=== PATIENT | male | born 1950 | race Caucasian/White ===

== ENCOUNTER 2018-09-05 16:21 | Observation (INO) | payer MEDICARE ==
[2018-09-05 17:30] LABS: #Basophils 0.1 thou/uL (0.0-0.2); #Eosinphils 0.2 thou/uL (0.0-0.7); #Lymphocytes 1.9 thou/uL (1.20-3.40); #Monocytes 0.6 thou/uL (0.11-0.59); %Basophils 0.9 % (0.0-1.0); %Eosinophils 2.7 % (0.0-10.0); %Lymphocytes 21.5 % (21.0-51.0); %Monocytes 7.1 % (0.0-10.0); %Neutrophils 67.7 % (42.0-75.0); Hemoglobin 14.3 g/dL (14.0-18.0); Mean Corpuscular HGB CONC 33.3 g/dL (32.0-36.0); Mean Corpuscular Hemoglobin 30.9 pg (27.0-31.0); Mean Corpuscular Volume 92.8 fL (78.0-98.0); Mean Platelet Volume 7.9 fL (7.4-10.4); Platelet Count 256 thou/uL (130-400); RBC Distribution Width 11.7 % (11.5-14.5); Red Blood Cell (RBC) Count 4.64 mill/uL (4.70-6.10); White Blood Cell (WBC) Count 8.9 thou/uL (4.8-10.8)
[2018-09-05 17:52] LABS: ALT (SGPT) 14 U/L (8-55); AST (SGOT) 14 U/L (5-34); Albumin 3.9 g/dL (3.4-4.8); Alkaline Phosphatase 69 U/L (40-150); Anion Gap 8 mmol/L (10-20); BUN (Urea Nitrogen) 15 mg/dL (8.4-25.7); Bilirubin, Total 0.5 mg/dL (0.2-1.2); Calc. Creatinine Clearance 0 mL/min (70-130); Calcium 9.6 mg/dL (7.8-10.44); Carbon Dioxide 29 mmol/L (23-31); Chloride 103 mmol/L (98-107); Estimated GFR-MDRD 73; Glucose 103 mg/dL (80-115); Potassium 4.2 mmol/L (3.5-5.1); Protein, Total 5.9 g/dL (5.8-8.1); Sodium 136 mmol/L (136-145)
[2018-09-05 18:44] LABS: PTT 28.5 SEC (22.9-36.1); Prothrombin Time 13.3 SEC (12.0-14.7)
[2018-09-05] MEDS ORDERED: Senokot S 8.6-50 MG TAB PO PRN (19:58)
[2018-09-05] MEDS ORDERED: Acetaminophen 325 MG TAB PO PRN (19:58)
[2018-09-05] MEDS ORDERED: Famotidine/PF 20 mg/2ml Vial SLOW IVP SCH (21:00)
[2018-09-05] MEDS: Famotidine 20 MG TAB PO SCH (21:27)
[2018-09-05] MEDS: Melatonin 3 MG TAB PO PRN (21:42)
[2018-09-05 21:46] LABS: Troponin I 0.017 ng/mL (< 0.028)
[2018-09-05 22:17] VITALS: BMI 34.0
--- NOTE | 2018-09-05 23:42 | HP ---
PRIMARY CARE PHYSICIAN: Bee Prasad DO CHIEF COMPLAINT: Chest pain, dizziness. HISTORY OF PRESENT ILLNESS: Mr. Stone is a 68-year-old male who reported to the emergency room at [place] earlier today for palpitations, diaphoresis, little bit of shortness of breath with substernal chest pain. Reports that the symptoms lasted about an hour and half. When they did an EKG in [place] that showed narrow complex tachycardia, rate in the 160s. Gave him metoprolol IV with some fluids which converted his rhythm to a sinus rhythm in the 70s. The patient was then transferred to [facility] ER for admission. The patient reports that he had an episode of chest pain about a year and a half ago, had a stress test by his PCP after he declined to have one in the hospital at that time. Reports that he was in [place] working when he had the episode and was subsequently discharged with the understanding that he would follow up with his PCP. The patient reports that his stress test was normal and that his PCP interpreted his symptoms most likely to anxiety. The patient reported at that time he was under quite a lot of stress, so the diagnosis seemed reasonable to him at that time. Other primary diagnosis contributory, he is being treated for high blood pressure. He also takes an 81 mg aspirin every day. Reports that he saw Dr. Prasad within the last several months. Reports that he had a normal checkup. Here, the patient had subsequent followup EKG which showed a normal sinus rhythm. Denies any chest pain, shortness of breath, currently reported that he did feel some dizziness twice today prior to him seeking care at the emergency room at [place]. Denies any dizziness after they gave him the medication over there and prior to being transferred. The patient will be admitted to the observation unit for further management. ALLERGIES: NONE. MEDICATIONS: The patient reports that he does take medication for blood pressure. Does take an aspirin. Reports that his significant other is bringing his medications and we will review and reconcile when we get that list. PAST MEDICAL HISTORY: Hypertension. SURGICAL HISTORY: Hemorrhoidectomy, 3 lumbar back surgeries, reports lumbar spine is fused, hernia repair, left wrist repair. SOCIAL HISTORY: Lives at home. Does have a significant other. Drinks socially. Denies drug use. Denies smoking history. 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 REVIEW OF SYSTEMS: CONSTITUTIONAL: The patient denies chills or fever. EYES: Denies any vision changes or eye pain. ENT: Denies any rhinorrhea or sore throat. CARDIOVASCULAR: Reports chest pain earlier today and reports palpitations, reports that both of those are resolved. RESPIRATORY: Denies any cough. Does report shortness of breath earlier today, resolved. GI: Denies abdominal pain, nausea, vomiting, constipation, or diarrhea. : Denies dysuria or hematuria. MUSCULOSKELETAL: Denies back pain, fall, injury, neck pain. Reports that he has some bilateral shoulder pain, but that has been ongoing for several months and is intermittent. SKIN: Denies rash or skin changes. NEUROLOGIC: Does report intermittent dizziness. Denies headache. All other systems reviewed and negative unless mentioned in the HPI. PHYSICAL EXAMINATION: VITAL SIGNS: Blood pressure 117/64, pulse is 70, respirations 18, temperature is 98.5, pO2 is 96% on room air. CONSTITUTIONAL: The patient appears nontoxic, appears pain free. He is alert and oriented to person, place, and time. HEENT: Head is atraumatic and normocephalic. Eyes; pupils are equal, round, and reactive to light. Extraocular muscles are intact. ENT; mouth exam is normal. Mucous membranes are moist. RESPIRATORY: Breath sounds are clear. There are no findings of respiratory distress. CARDIOVASCULAR: Regular rate and rhythm. Heart sounds are normal. ABDOMEN: Nontender. Bowel sounds are heard. BACK: Normal inspection. Normal range of motion. No tenderness. EXTREMITIES: Upper extremities; normal range of motion. Motor strength is normal. Radial pulses are equal bilaterally. Lower extremities; normal range of motion. Normal motor strength. Sensation is intact. Pedal pulses are equal bilaterally. NEUROLOGIC: The patient is alert to person, place, and time. Speech is normal. Gait was not assessed. SKIN: Warm, dry, and normal in color. No rash. LABORATORY DATA: EKG, one obtained in this emergency room, showed a normal sinus rhythm, beats per minute 68, no ectopics. Does have sinus arrhythmia. Conduction is normal. ST segments are normal. T-waves normal. [place] is normal. PERTINENT LABORATORY DATA: PTT 28.5, INR is 1. Troponin undetectable. Sodium 136, potassium 4.2, chloride 103, carbon dioxide 29, gap is 8, BUN is 15, creatinine is 1.01, GFR is 73, glucose is 103, and calcium is 9.6, bilirubin is 0.5, AST is 14, ALT is 14. D-dimer is less than 0.27. White blood cell count is 8.9, hemoglobin is 14.3, hematocrit is 43, platelet count is 256. ASSESSMENT AND PLAN: 1. Chest pain and palpitations. We will trend troponins. We will obtain an echocardiogram and carotid Doppler. Consult Cardiology. We will also check lipids. 2. Hypertension. We will restart home medications. We will trend. 3. Hospital course will be dependent on clinical findings. Job ID: [id number]
[2018-09-05 23:59] LABS: Troponin I 0.012 ng/mL (< 0.028)
[2018-09-06 07:12] LABS: #Eosinphils 0.3 thou/uL (0.0-0.7); #Lymphocytes 1.8 thou/uL (1.20-3.40); #Monocytes 0.6 thou/uL (0.11-0.59); #Neutrophils 3.9 thou/uL (1.40-6.50); %Basophils 0.6 % (0.0-1.0); %Eosinophils 4.7 % (0.0-10.0); %Monocytes 9.5 % (0.0-10.0); %Neutrophils 58.2 % (42.0-75.0); Hemoglobin 14.4 g/dL (14.0-18.0); Mean Corpuscular HGB CONC 33.4 g/dL (32.0-36.0); Mean Corpuscular Hemoglobin 31.2 pg (27.0-31.0); Mean Corpuscular Volume 93.6 fL (78.0-98.0); Mean Platelet Volume 8.4 fL (7.4-10.4); Platelet Count 230 thou/uL (130-400); RBC Distribution Width 11.7 % (11.5-14.5); White Blood Cell (WBC) Count 6.7 thou/uL (4.8-10.8)
[2018-09-06 07:35] LABS: Anion Gap 12 mmol/L (10-20); BUN (Urea Nitrogen) 15 mg/dL (8.4-25.7); Calc. Creatinine Clearance 125 mL/min (70-130); Calcium 9.4 mg/dL (7.8-10.44); Carbon Dioxide 25 mmol/L (23-31); Cardiac Risk 5.4 (Less than 4.5); Chloride 106 mmol/L (98-107); Cholesterol 209 mg/dl (< 200 Desired); Estimated GFR-MDRD 79; Glucose 102 mg/dL (80-115); HDL Cholesterol 39 mg/dL (>60 Neg Risk); LDL Cholesterol, Calculated 141 mg/dL; Magnesium 2.7 mg/dL (1.6-2.6); Phosphorus 4.1 mg/dL (2.3-4.7); Potassium 4.7 mmol/L (3.5-5.1); Sodium 138 mmol/L (136-145); Triglycerides 147 mg/dL (Less than 150)
[2018-09-06] MEDS ORDERED: Enoxaparin Sodium 40 MG/0.4 ML SYRINGE SC SCH (09:00)
--- NOTE | 2018-09-06 09:25 | ULT ---
FBILATERAL CAROTID DUPLEX ULTRASOUND: HISTORY: Dizziness TECHNIQUE: Grayscale, color-flow and spectral Doppler ultrasound imaging of the extracranial carotid artery syst ems was performed bilaterally. FINDINGS: There is plaque formation on either side.. The peak systolic velocity in the right ICA measures 53 cm/s with an end-diastolic velocity of 15 cm/ s and a systolic ratio of 0.84. The peak systolic velocity in the left ICA measures 62 cm/s with an end-diastolic velocity of 19 cm/s and a systolic ratio of 0.87. Flow in both vertebral arteries remains antegrade. IMPRESSION: No evidence of hemodynamically significant stenosis in either ICA.
[2018-09-06] MEDS: Famotidine 20 MG TAB PO SCH ×2 (10:15→19:54)
[2018-09-06] MEDS: Lisinopril 20 MG TAB PO SCH (10:15)
--- NOTE | 2018-09-06 12:29 | PRG ---
DATE OF SERVICE: SUBJECTIVE: Mr. Stone is a very pleasant 68-year-old male with past medical history significant for hypertension, who presented to the [place] ER with complaints of chest pain, shortness of breath, and dizziness. The patient has been admitted with supraventricular tachycardia. He did have spontaneous resolution of his arrhythmia back to sinus after being given Lopressor in the [place] ER. He was brought to our facility for further workup. Overnight, this patient has remained in sinus rhythm. His presenting symptoms of chest pain, shortness of breath and dizziness have resolved. He has no complaints to me this morning. He denies CP, SOB, N/V, [place]. OBJECTIVE: VITAL SIGNS: Blood pressure 143/93, pulse is 58, O2 saturation is 99% on room air, respirations are 16. GENERAL: The patient is a mildly obese male resting comfortably in bed, in no acute distress, well appearing. NECK: No JVD. No carotid bruits, trachea is midline. HEENT: Head is atraumatic, normocephalic. Mucous membranes are moist. CV: S1, S2. Regular rate and rhythm. No appreciable murmurs, rubs, or gallops. LUNGS: Regular respiratory rate and pattern. Clear to auscultation bilaterally with no wheezes, rhonchi, or crackles noted. ABDOMEN: Positive bowel sounds, obese, nontender. EXTREMITIES: No lower extremity pitting edema, +2 DP pulses bilaterally. SKIN: Warm and dry. No rashes or abrasions. LABORATORY DATA: White blood cell count 6.7, hemoglobin 14.4, hematocrit 43.1, platelets 230. PT 13.3, INR 1.0. D-dimer less than 0.27. Sodium 138, potassium 4.7, chloride 106, creatinine 0.94, glucose 102, magnesium 2.7. Liver function enzymes within normal limits. Troponin negative x2. Cholesterol is 209, LDL 141, HDL 39. ASSESSMENT: 1. 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 2. Chest pain secondary to above, resolved, acute coronary syndrome ruled out. 3. Hypertension. 4. Hyperlipidemia. PLAN: Dr. Polanco has consulted and is recommending EP ablation of his arrhythmia. Dr. Alvarez to see later this afternoon. We anticipate an ablation tomorrow. N.p.o. after midnight. Echocardiogram is pending and we will review results. The patient has had a recent nuclear stress test in the past year or so and that will be deferred at this time. Continue his home dose of lisinopril, and we will add a low-dose statin. Further recommendations based on hospital course. Care discussed with Dr. Jensen, who agrees with plan as outlined above. Job ID: [id number] MTDD
--- NOTE | 2018-09-06 14:06 | CON ---
DATE OF CONSULTATION: 09/06/2018 REASON FOR CONSULTATION: Tachycardia associated with chest pain. HISTORY OF PRESENT ILLNESS: Mr. Stone is a very pleasant 68-year-old man. The patient states he just was not feeling well yesterday around noon. He felt lightheaded. He was vaguely aware that his heart seemed to be going fast. He called his , she came to check on him. He ate some lunch, but even after about an hour, this did not feel well, following that went to the emergency room with supraventricular tachycardia rate of 160. He received metoprolol 5 mg IV, converted to sinus rhythm. The patient had an episode of "panic attack" a year and a half ago associated with tachycardia as well. I suspect that was probably an episode of SVT. Otherwise, the patient is active, exert himself on a regular basis, does some ranching type work, caring and lifting with no chest pain or pressure. He had been in good physical condition. PAST MEDICAL HISTORY: History of hypertension, on lisinopril. SOCIAL HISTORY: He does chew some tobacco. Does not smoke. REVIEW OF SYSTEMS: CONSTITUTIONAL: No significant weight gain or loss. Vision, no changes. Hearing, no changes. PULMONARY: No cough or wheezing. GASTROINTESTINAL: No nausea, vomiting, or diarrhea. SKIN: No rashes. NEUROLOGIC: No unilateral weakness or numbness. PSYCHIATRIC: No unusual depression or anxiety. HEMATOLOGIC: No unusual bruising. GENITOURINARY: No burning with urination. PHYSICAL EXAMINATION: GENERAL: This is a pleasant 68-year-old man, looks younger than his chronologic age. VITAL SIGNS: His blood pressure 150/70, pulse 60, regular. HEENT: Eyes, sclerae nonicteric. Mouth mucous membranes moist. NECK: Supple. No lymphadenopathy. LUNGS: Clear. No wheezing, rales, or rhonchi. CARDIAC: Normal S1, normal S2. There is no murmur, rub, or gallop. ABDOMEN: Soft and nontender. EXTREMITIES: No clubbing or cyanosis. There is no edema. Peripheral pulses are present. SKIN: Warm and dry. PSYCHIATRIC: Mood and affect normal. NEUROLOGIC: Grossly normal. PERTINENT LABORATORY DATA: EKG yesterday shows narrow complex supraventricular tachycardia, rate of 160. Pertinent laboratories bilirubin was 0.5. Magnesium level 2.7. LDL cholesterol was 141. Troponin levels were all in negative range. ASSESSMENT: 1. Supraventricular tachycardia, highly symptomatic with prolonged episodes of tachycardia. 2. Negative cardiac enzymes despite a rapid prolonged tachycardia. PLAN: 1. EKG reviewed, it looks like supraventricular tachycardia. I have consulted Dr. Alvarez for ablation procedure. 2. Echocardiogram to be done. 3. We will go ahead and proceed with stress testing to look for evidence of atherosclerotic heart disease. ADDENDUM Mr. Stone states he has had a nuclear medicine stress test less than a year ago. He said "passed with flying colors" at this time; therefore, we will not repeat the stress test. He will be scheduled for supraventricular tachycardia ablation and also echocardiogram to be done. The patient did have negative cardiac enzymes with his prolonged episode of tachycardia, indicating it is very unlikely he has severe underlying coronary artery disease. Job ID: [id number]
--- NOTE | 2018-09-06 18:13 | CON ---
DATE OF CONSULTATION: 09/06/2018 HISTORY OF PRESENT ILLNESS: I am seeing Mr. Stone at our [facility] Telemetry Floor as an electrophysiology consultant electronics. His problems are; 1. Paroxysmal supraventricular tachycardia. a. EKG on admission reveals narrow complex tachycardia, rate of 158 beats per minute. P-wave is likely buried in QRS with response to metoprolol. b. Structurally normal heart. LVEF 60% to 65%. Normal left atrial size. No same valvular abnormality on echo, 09/06/2018. 2. Chest pain without significant EKG changes and negative troponins on admission resolved with normalizing heart rates. 3. History of hypertension, on lisinopril. ALLERGIES: NONE NOTED. MEDICATIONS: At home included lisinopril and aspirin 81 daily. SUBJECTIVE: Mr. Stone has had episode of palpitations about a year ago at which point, he did develop rapid heart beat. By the time he got to the ER, his heart rate normalized and he was told hat he might have had an anxiety attack. He had similar sensations yesterday and ended up in the Medicine ER and he was noted to be in narrow complex SVT. IV metoprolol was administered, which eventually terminated the arrhythmia ever since he remains in sinus rhythm. During the episode, he experienced some chest tightness sensation in the upper part of his sternum without radiation. He had no PND, orthopnea, or lower extremity edema since fluid overload no stroke-like symptoms. No neurological deficits. No fever, chills, or cough. Currently, he is asymptomatic. Rest of 12-point system otherwise unremarkable. PAST MEDICAL HISTORY: As above. PAST SURGICAL HISTORY: Includes extensive back surgeries due to a hunting accident in [place] many years ago. He had history of hemorrhoidectomy, as well as wrist repair in the past. SOCIAL HISTORY: He is . is at bedside. He is at home. Drinks on social basis. Denies drug use. 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 FAMILY HISTORY: Noncontributory. OBJECTIVE DATA: VITAL SIGNS: Blood pressure is 137/71, heart rate 73, respiratory rate 16, temperature 98.3 degrees Fahrenheit. GENERAL: Alert and oriented man, in no apparent distress. NECK: Supple. Jugular veins not distended. CHEST: Coarse without crackles. HEART: Sounds are regular to rate and rhythm. No murmur or gallop. ABDOMEN: Benign. Bowel sounds positive. EXTREMITIES: Lower extremities without edema, clubbing or cyanosis. Pulses are adequate. NEUROLOGIC: The patient is nonfocal. MUSCULOSKELETAL: Exam without joint deformities. SKIN: Without rash. DATABASE: EKG is reviewed, revealing sinus rhythm, rate of 84 beats per minute. EKG prior to that yesterday reveals a narrow complex SVT with somewhat prominent RSR pattern in V1 QRS. LABORATORY DATA: Sodium 138, potassium 4.7, BUN is 15, creatinine is 0.94. Troponins are negative x3. Total cholesterol 209, LDL 141, HDL 39. INR is 1.0. White cell count 6.7, hemoglobin 14.4, and platelet count is 230. ASSESSMENT AND PLAN: Me. Stone is a pleasant 68-year-old man with prior history of palpitations, presenting with supraventricular tachycardia which could be consistent with AV uzma reentry tachycardia, completely rule out alternative causes like atrial tachyarrhythmias, atrial tachycardias. EP study would be helpful to determine the exact mechanism. Also discussed option of ablation. He prefers this over long-term medical therapy. We discussed potential risks including bradycardia requiring pacing, tamponade requiring pericardiocentesis or surgical repair, infection recurrences were also mentioned. He understands all of these and willing to proceed. We will schedule him for near date. Thank you for allowing us to participate in the care of this patient. Job ID: [id number]
[2018-09-06] MEDS: Melatonin 3 MG TAB PO PRN (19:54)
[2018-09-06] MEDS: Atorvastatin Calcium 10 MG TAB PO SCH (19:54)
[2018-09-07 05:10] LABS: #Basophils 0.1 thou/uL (0.0-0.2); #Eosinphils 0.4 thou/uL (0.0-0.7); #Lymphocytes 1.9 thou/uL (1.20-3.40); #Monocytes 0.5 thou/uL (0.11-0.59); #Neutrophils 3.5 thou/uL (1.40-6.50); %Basophils 0.8 % (0.0-1.0); %Eosinophils 5.7 % (0.0-10.0); %Lymphocytes 30.1 % (21.0-51.0); %Monocytes 7.8 % (0.0-10.0); %Neutrophils 55.5 % (42.0-75.0); Hemoglobin 14.4 g/dL (14.0-18.0); Mean Corpuscular HGB CONC 34.1 g/dL (32.0-36.0); Mean Corpuscular Hemoglobin 31.9 pg (27.0-31.0); Mean Corpuscular Volume 93.6 fL (78.0-98.0); Mean Platelet Volume 8.4 fL (7.4-10.4); Platelet Count 220 thou/uL (130-400); RBC Distribution Width 11.8 % (11.5-14.5); Red Blood Cell (RBC) Count 4.52 mill/uL (4.70-6.10); White Blood Cell (WBC) Count 6.4 thou/uL (4.8-10.8)
[2018-09-07 05:39] LABS: Anion Gap 12 mmol/L (10-20); BUN (Urea Nitrogen) 15 mg/dL (8.4-25.7); Calc. Creatinine Clearance 121 mL/min (70-130); Calcium 9.4 mg/dL (7.8-10.44); Carbon Dioxide 25 mmol/L (23-31); Chloride 105 mmol/L (98-107); Estimated GFR-MDRD 77; Glucose 98 mg/dL (80-115); Potassium 4.3 mmol/L (3.5-5.1); Sodium 138 mmol/L (136-145)
--- NOTE | 2018-09-07 09:00 | PRG ---
DATE OF SERVICE: 09/07/2018 SUBJECTIVE: The patient is doing well, has no new complaints. He has some questions regarding his procedure today. OBJECTIVE: VITAL SIGNS: Temperature 97.9, pulse 56, respirations 14, O2 saturation 97% on room air, and BP 127/64. GENERAL APPEARANCE: Age-appropriate male, in no distress. He is awake, alert, oriented, pleasant, and cooperative. HEART: Regular rate and rhythm without murmurs, gallops, or rubs. LUNGS: Clear to auscultation bilaterally. ABDOMEN: Soft, nontender, and nondistended. NEUROLOGIC: The patient appears to be a fully intact with no focal deficits. LABORATORY DATA: Review of his carotid Dopplers reveal no significant disease. His echocardiogram appears essentially normal. His total cholesterol is 209, LDL is 141, and HDL is 39. IMPRESSION AND PLAN: 1. 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 It has been evaluated by Cardiology and EP. He has normal-appearing echocardiogram. The plan is for EP study today with potential ablation of the aberrant pathway. If that goes planned, the patient will likely be able to discharge later today. 2. Hypertension. Continue with his usual angiotensin-converting enzyme inhibitor. 3. Cholesterol panel likely where as continuation of statin. Job ID: [id number]
[2018-09-07] MEDS: Lisinopril 20 MG TAB PO SCH (09:56)
[2018-09-07] MEDS: Famotidine 20 MG TAB PO SCH ×2 (09:57→21:08)
[2018-09-07] MEDS ORDERED: Heparin 10,000 UNITS/1 ML VIAL ONE (10:11)
[2018-09-07] MEDS ORDERED: Lidocaine 1% PF 5 ML VIAL ONE (10:19)
[2018-09-07] MEDS ORDERED: PROPOFOL 200 MG/20 ML VIAL ONE (10:19)
[2018-09-07] MEDS ORDERED: Midazolam HCl 2 mg/2 ml Vial ONE (12:14)
[2018-09-07] MEDS ORDERED: Isoproterenol 0.2 MG/1 ML AMP ONE (12:35)
[2018-09-07] MEDS ORDERED: Fentanyl 100 MCG/2 ML VIAL ONE ×3 (13:05→15:22)
[2018-09-07] MEDS ORDERED: Acetaminophen/Codeine 30-300mg Tablet ONE (14:29)
[2018-09-07] MEDS ORDERED: Ketorolac Tromethamine 30 MG/ML VIAL ONE (15:27)
[2018-09-07] MEDS ORDERED: HYDROcodone/Acetaminophen 7.5/325 mg Tablet PO PRN (16:39)
[2018-09-07] MEDS ORDERED: Acetaminophen/Codeine 30-300mg Tablet PO PRN ×2 (16:45)
--- NOTE | 2018-09-07 16:55 | PRG ---
DATE OF SERVICE: 09/07/2018 Mr. Stone underwent catheter ablation today. He has some groin tenderness. He will be kept overnight. I have asked him to come to see us in the office in about a month. DIAGNOSIS: Supraventricular tachycardia, atrioventricular uzma reentry with successful ablation. Job ID: [id number]
--- NOTE | 2018-09-07 17:48 | PRG ---
DATE OF SERVICE: 09/07/2018 SUBJECTIVE: Mr. Stone is a very pleasant 68-year-old male with past medical history significant for hypertension, who presented to the [place] ER with complaints of chest pain, shortness of breath, and dizziness. The patient was admitted with narrow complex tachycardia consistent with AVNRT. He was taken to the EP lab by Dr. Alvarez this afternoon for EP ablation, which was successful. The patient is seen post procedure in his room. He does complain of some right groin pain and some hip soreness. No chest pain. No shortness of breath. No nausea or vomiting. OBJECTIVE: VITAL SIGNS: Temperature 97.8, pulse is 57, blood pressure 127/64, respirations 20, and O2 saturation 98% on room air. GENERAL: This is a moderately obese male, resting in bed. No acute distress. NECK: No JVD. No carotid bruits. Trachea is midline. HEENT: Head is atraumatic and normocephalic. Mucous membranes are moist. CV: S1 and S2. Regular rhythm, mildly bradycardic. No appreciable murmurs, rubs, or gallops. LUNGS: Regular respiratory rate and pattern. Clear to auscultation bilaterally. No wheezes, rhonchi, or crackles noted. ABDOMEN: Positive bowel sounds. Obese. Nontender. EXTREMITIES: No lower extremity pitting edema. Groin sites bilaterally are soft, no bruit. No evidence of hematoma. SKIN: Warm and dry. No rashes or abrasions. LABORATORY DATA: White blood cell 6.4, hemoglobin 14.4, and hematocrit 42.3. Sodium 138, potassium 4.3, chloride 105, carbon dioxide 25, BUN 15, and creatinine 0.97. ASSESSMENT: 1. AV uzma reentry tachycardia, status post ablation, currently in sinus bradycardia. 2. Chest pain on presentation secondary to above, resolved, acute coronary syndrome ruled out. 3. Hypertension. 4. Hyperlipidemia. PLAN: The patient will be monitored overnight for any arrhythmia. After bedrest, he will ambulate as tolerated. Expect discharge tomorrow morning. He will see both Dr. Polanco and Dr. Alvarez as outpatient. Care discussed with Dr. Mahajan, who agrees with the above. Job ID: [id number]
--- NOTE | 2018-09-07 19:24 | OP ---
DATE OF PROCEDURE: 09/07/2018 PROCEDURE PERFORMED: Electrophysiology study and radiofrequency ablation. REASON FOR PROCEDURE: Mr. Stone is a 68-year-old man with prior history of hypertension, presented with recurrent palpitations and EKG documentation for narrow complex SVT at 150 to 160 beats per minute. He is here for EP study and ablation. DESCRIPTION OF PROCEDURE: The patient received propofol by Anesthesia specialist. After adequate level of sedation achieved, the left and right femoral venous areas were prepped, draped, and anesthetized using subcutaneous lidocaine. Under ultrasound guidance, both femoral veins were cannulated. On the left side, 6 and 8-Iranian sheath was used to advance the octapolar and decapolar catheters in the right atrium, right ventricle, His bundle, and CS position. Pacing, mapping, and recording were performed in each location. Following findings were noted. The baseline rhythm is sinus rhythm with cycle length 922 milliseconds, DE was 74, QRS was 97, QT was 360 milliseconds, AH measured 43 millisecond, HV 36 milliseconds. Sinus node recovery time was 1218, corrected sinus node recovery time was 290 milliseconds. The AV uzma Wenckebach occurred was 460 milliseconds. The retrograde Wenckebach cycle length was 380 milliseconds. The AV uzma ERP with atrial access to my testing was measured to be 600/320 milliseconds. Concentric retrograde VA activation was seen and dual AV uzma physiology was found to be present. Echo beats were seen during atrial overdrive pacing and also 2 beats of AVNRT was noted only. Isuprel was administered, but no different findings were noted at that time. Due to the presence of slow pathway as well as the typical appearing presenting EKG on admission, decision was made to perform slow pathway modification. We advanced a 4-Iranian regular ablation catheter to the right atrium with CARTO system. 3D map of the right atrium was obtained. The His bundle cloud and the CS were clearly delineated. In the slow pathway area, radiofrequency ablation lesions were delivered a total of 6 lesions. Total duration 2 minutes and 17 seconds were performed. The settings of 40 gong at 50-degree cutoff. During the ablation, junctional beats were observed. In the end of the case, we were not able to reinduce any SVT on and off Isuprel. A Wenckebach cycle length was 460 milliseconds and the AV uzma ERP changed to 600/360 milliseconds. No echo beats were observed and no AVNRT induced on and off Isuprel. CONCLUSION: 1. Presence of slow pathway and short run of tachycardia consistent with AV uzma reentry. 2. Successful slow pathway modification. 3. No change in cardiac silhouette to suggest effusion. PLAN: Routine monitoring. Job ID: [id number]
[2018-09-07] MEDS: Atorvastatin Calcium 10 MG TAB PO SCH (21:08)
[2018-09-07] MEDS: Melatonin 3 MG TAB PO PRN (21:08)
[2018-09-08 08:09] VITALS: BP 130/70; TEMP 98.6
[2018-09-08] MEDS: Lisinopril 20 MG TAB PO SCH (09:26)
[2018-09-08] MEDS: Famotidine 20 MG TAB PO SCH (09:26)
--- NOTE | 2018-09-08 11:28 | DIS ---
DATE OF ADMISSION: 09/05/2018 DATE OF DISCHARGE: 09/08/2018 ALLERGIES: NO KNOWN DRUG ALLERGIES. CHIEF COMPLAINT: Chest pain, dizziness, and shortness of breath. FINAL DIAGNOSES: 1. Chest pain and shortness of breath secondary to AV uzma reentrant tachycardia, status post ablation, currently in sinus rhythm. 2. Chest pain on presentation, secondary to the atrioventricular uzma reentry tachycardia, resolved, acute coronary syndrome ruled out. 3. Hypertension. 4. Hyperlipidemia. PROCEDURE PERFORMED: Electrophysiology study and radiofrequency ablation with Dr. Alvarez. EP study showed presence of slow pathway and short run of tachycardia consistent with AV uzma reentrant tachycardia. He underwent successful slow pathway modification. LABORATORY RESULTS: WBC 6.4, hemoglobin 14.4, hematocrit 42.3, platelets are 220. PT 13.3, INR 1.0. D-dimer less than 0.27. Sodium 138, potassium 4.3, chloride 105, carbon dioxide 25, anion gap 12, BUN 15, creatinine 0.97. Troponin negative x2. Triglycerides 147, cholesterol 209, LDL 141, HDL 39. IMAGING RESULTS: Chest x-ray, no radiographic evidence of acute cardiopulmonary process. Echocardiogram, normal left ventricular systolic function and size with EF estimated at 60% to 65%. Left atrium normal size. No evidence of mitral regurgitation, aortic stenosis, or aortic regurg. CONSULTATIONS: Dr. Polanco, Cardiology; Dr. Alvarez, EP. Vital signs; blood pressure 120/59, pulse is 52, O2 saturation is 97% on room air. The patient is afebrile. HOSPITAL COURSE: The patient is a very pleasant 68-year-old male with past medical history significant for hypertension, who presented to the [place] [facility] with complaints of chest pain, shortness of breath, and dizziness. On arrival to [place], initial EKG showed narrow complex tachycardia, with a regular rhythm, ventricular rate of 160, consistent with AVNRT. The patient was given IV Lopressor, and spontaneously converted back to sinus rhythm. He was transferred to our facility for higher level of care. He was seen in consultation with Dr. Polanco, who did recommend EP ablation. Dr. Alvarez was consulted, and the patient underwent successful right-sided AVNRT ablation yesterday. His echocardiogram was normal. Stress test was deferred, as the patient has had a recent stress test performed within the last year in [place]. The patient has had no return of his symptoms since his hospitalization. He rested well overnight. He has no chest pain, shortness of breath, or dizziness. He has no pain from his right or left groin site. He has ambulated the room without issue. Lab work did indicate mildly elevated cholesterol and LDL, the patient was initiated on statin therapy, which he has tolerated well. He has no complaints this morning. PHYSICAL EXAMINATION: GENERAL: This is a well-appearing, moderately obese, male, sitting up in bed, in no acute distress. NECK: No JVD. No carotid bruits. No lymphadenopathy. Trachea is midline. HEENT: Head is atraumatic, normocephalic. Mucous membranes are moist. CV: S1 and S2. Regular rate and rhythm. No appreciable murmurs, rubs, or gallops. LUNGS: Regular respiratory rate and pattern. Clear to auscultation bilaterally. No wheezes, rhonchi, or crackles noted. ABDOMEN: Positive bowel sounds. Mildly obese. Nontender. EXTREMITIES: No lower extremity pitting edema. Groin sites are bilaterally soft. No bruit. No evidence of hematoma or oozing. SKIN: Warm and dry. No rashes or abrasions. CONDITION AT DISCHARGE: Stable. DISCHARGE MEDICATIONS: 1. Aspirin 81 mg daily. 2. Lisinopril 20 mg tablet one tablet p.o. daily. New medication is atorvastatin 10 mg tablet one tablet p.o. q.h.s. DISCHARGE DISPOSITION: Home. PLAN: The patient will follow up both with Dr. Alvarez and with Dr. Polanco as an outpatient. He will continue aspirin, lisinopril, and new medication statin. He will continue risk factor modifications including weight loss and exercise, which has been discussed with the patient at length. All questions have been answered to the patient's satisfaction. Care discussed with Dr. Mahajan, who agrees with the above. Job ID: [id number]
--- NOTE | 2018-09-10 17:57 | EKG ---
Test Reason : POST ABLATION Blood Pressure : / mmHG Vent. Rate : 050 BPM Atrial Rate : 050 BPM P-R Int : 170 ms QRS Dur : 096 ms QT Int : 412 ms P-R-T Axes : 057 023 013 degrees QTc Int : 375 ms Sinus bradycardia with sinus arrhythmia Otherwise normal ECG When compared with ECG of 05-SEP-2018 16:32, (Unconfirmed) No significant change was found Confirmed by WALLY JOSEPH (2) on 09/10/2018 5:56:42 PM Referred By: BELA Confirmed By:WALLY JOSEPH
== END 2018-09-08 10:41 | disposition home or self-care (01) ==
LOC: ERS 16:21 → 2SW 17:37 → INTOOBSV 17:37
PROVIDERS: ADMIT Emergency Medicine; ATTEND Emergency Medicine
PROC: 4A023FZ Measurement of Cardiac Rhythm, Percutaneous Approach (ICD-10-PCS; principal; 2018-09-05)
PROC: 4A0234Z Measurement of Cardiac Electrical Activity, Percutaneous Approach (ICD-10-PCS; 2018-09-05)
PROC: 02583ZZ Destruction of Conduction Mechanism, Percutaneous Approach (ICD-10-PCS; 2018-09-05)
DX: I47.1 Supraventricular tachycardia (principal); R42 Dizziness and giddiness; R06.02 Shortness of breath; I10 Essential (primary) hypertension; E78.5 Hyperlipidemia, unspecified; Z79.82 Long term (current) use of aspirin; Z79.899 Other long term (current) drug therapy
CPT/HCPCS: 76942; 80048 ×2; 80053; 80061; 83735; 84100; 84484; 85025 ×3; 85379; 85610; 85730; 93005 ×3; 93306; 93613; 93623; 93653; 93880; 96372; 97139; 99285; C1730 ×2; C1769; G0378 ×3; 36415; 93010; J1644; J1650; J1885; J2001; J2250; J2704; J3010; S0028